=== PATIENT | female | born 2000 | race Caucasian/White ===

== ENCOUNTER 2022-01-12 14:07 | Emergency (ER) | payer MEDICAID ==
[~2022-01-12] VITALS: Ht 162.6 cm; Wt 81.6 kg
[2022-01-12 14:16] VITALS: BP 127/68
[2022-01-12] MEDS ORDERED: FLUORESCEIN OPTH STRIP 1 MG OP ONE ×2 (16:10→17:45)
--- NOTE | 2022-01-12 17:32 | NUR ---
PT AMBULATED TO ER BED 2
[2022-01-12] MEDS ORDERED: FLUORESCEIN OPTH STRIP 1 MG ONE (17:40)
[2022-01-12] MEDS ORDERED: TETRACAINE HCL/PF 0.5% OPTH 4 ML BTL ONE (17:40)
[2022-01-12] MEDS ORDERED: TETRACAINE HCL/PF 0.5% OPTH 4 ML BTL OP ONE (17:45)
--- NOTE | 2022-01-12 17:54 | NUR ---
21 y/o female, pt states she got eyelash extensions on 2 days ago, started to notice yesterday that her left eye became red, increased irritation and redness today. denies any pain or blurry vision at this time. denies wearing contacts or glasses. denies nausea, vomiting, diarrhea. skin is pink/warm/dry. a&o x4 with even and steady gait. lungs clear bl, heart rate even and regular. pt denies dysuria, hematuria, urinary frequency or retention, or anyone sick in the household with the same symptoms. pt denies any fever, cp, sob, or cough at this time. pt states pain is 0/10 at this time. vss. patient positioned for comfort. hob elevated. bed down. ermd made aware of pt. pmh: denies nka med: denies
--- NOTE | 2022-01-12 18:10 | NUR ---
tyra de la rosa at bedside Addendum: 01/12/22 at 1902 by [facility] tyra nieto at bedside for pt evaluation
[2022-01-12] MEDS ORDERED: OFLO10SO2 OP (18:27)
[2022-01-12] MEDS ORDERED: IBUP-2213 PO (18:27)
[2022-01-12 18:41] VITALS: BP 127/68
--- NOTE | 2022-01-12 18:41 | NUR ---
Patient discharged with v/s stable. Written and verbal after care instructions given and explained. Patient alert, oriented and verbalized understanding of instructions. Ambulatory with steady gait. All questions addressed prior to discharge. ID band removed. Patient advised to follow up with PMD. Rx of ofloxacin, ibuprofen (Sent) given. Patient educated on indication of medication including possible reaction and side effects. Opportunity to ask questions provided and answered. work note given
== END 2022-01-12 18:41 | disposition home or self-care (01) ==
LOC: MED 14:07
DX: S05.02XA Injury of conjunctiva and corneal abrasion without foreign body, left eye, initial encounter (principal); H11.32 Conjunctival hemorrhage, left eye; Z79.899 Other long term (current) drug therapy; X58.XXXA Exposure to other specified factors, initial encounter; Y93.89 Activity, other specified; Y92.89 Other specified places as the place of occurrence of the external cause; Y99.8 Other external cause status
CPT/HCPCS: 99283

== ENCOUNTER 2023-08-06 14:13 | Emergency (ER) | payer MEDICAID, OTHER ==
[~2023-08-06] VITALS: Ht 162.6 cm; Wt 89.4 kg
[~2023-08-06 14:13] MED LIST: IBUP-2213 PO; OFLO10SO2 OP
[2023-08-06 14:23] VITALS: BP 135/91; PULSE 77; RESP 18; TEMP 97.6; O2SAT 100
[2023-08-06 16:25] LABS: FLU A ANTIGEN negative (NEGATIVE); FLU B ANTIGEN NEGATIVE (NEGATIVE)
[2023-08-06] MEDS ORDERED: CETI-24 PO (16:28)
[2023-08-06] MEDS ORDERED: FLONAS NS (16:28)
[2023-08-06 16:38] VITALS: BP 130/87; PULSE 77; RESP 18; TEMP 97.6; O2SAT 100
== END 2023-08-06 16:39 | disposition home or self-care (01) ==
LOC: MED 14:13
DX: J30.9 Allergic rhinitis, unspecified (principal); Z20.822 Contact with and (suspected) exposure to COVID-19; Z79.899 Other long term (current) drug therapy
CPT/HCPCS: 99283

== ENCOUNTER 2024-05-13 12:24 | Emergency (ER) | payer OTHER ==
[~2024-05-13] VITALS: Ht 162.6 cm; Wt 90.7 kg
[~2024-05-13 12:24] MED LIST changes: +CETI-24 PO
[2024-05-13 12:33] VITALS: BP 131/96; PULSE 94; RESP 20; TEMP 98.6; O2SAT 98
[2024-05-13] MEDS ORDERED: CETI-366 PO (12:57)
[2024-05-13] MEDS ORDERED: CEFI400C4 PO (12:57)
[2024-05-13] MEDS ORDERED: MOME17SP NS (12:57)
== END 2024-05-13 13:01 | disposition home or self-care (01) ==
LOC: MED 12:24
DX: O99.513 Diseases of the respiratory system complicating pregnancy, third trimester (principal); J30.2 Other seasonal allergic rhinitis; J32.9 Chronic sinusitis, unspecified; O26.891 Other specified pregnancy related conditions, first trimester; H61.23 Impacted cerumen, bilateral; Z3A.14 14 weeks gestation of pregnancy; Z79.899 Other long term (current) drug therapy
CPT/HCPCS: 99283